=== PATIENT | female | born 1990 | race Caucasian/White ===

== ENCOUNTER 2021-02-02 20:13 | Emergency (ER) | payer OTHER, BC ==
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
[2021-02-02] MEDS ORDERED: Lidocaine 1% with EPINEPHrine 1:100,000 20 ML MDV ONE (20:58)
[2021-02-02] MEDS ORDERED: Lidocaine 1% with EPINEPHrine 1:100,000 20 ML MDV INJECT ONE (20:58)
[2021-02-02 21:38] VITALS: BP 145/83; PULSE 128
[2021-02-02] MEDS ORDERED: Acetaminophen/HYDROcodone 325-5 MG Tab PO ONE (21:53)
[2021-02-02] MEDS ORDERED: Acetaminophen/HYDROcodone 325-5 MG Tab ONE (21:55)
[2021-02-02] MEDS ORDERED: Ondansetron 4 MG Tab.DIS PO ONE ×2 (22:00)
[2021-02-02] MEDS ORDERED: Ondansetron 4 MG Tab.DIS ONE (22:01)
[2021-02-02] MEDS ORDERED: Cephalexin 250 MG Cap ONE (22:20)
[2021-02-02] MEDS ORDERED: Cephalexin 250 MG Cap PO ONE (22:22)
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
== END 2021-02-02 22:37 | disposition home or self-care (01) ==
LOC: KA.ED 20:13 → SUPCPDRO 20:13 → KA.ED 22:37
DX: S42.032A Displaced fracture of lateral end of left clavicle, initial encounter for closed fracture (principal); S01.01XA Laceration without foreign body of scalp, initial encounter; S01.312A Laceration without foreign body of left ear, initial encounter; Z88.5 Allergy status to narcotic agent; Z91.048 Other nonmedicinal substance allergy status; V86.69XA Passenger of other special all-terrain or other off-road motor vehicle injured in nontraffic accident, initial encounter; Y92.410 Unspecified street and highway as the place of occurrence of the external cause
CPT/HCPCS: 12002; 12013; 70450; 73000-LT; 73030-LT; 73610-RT; 99284; 99284-25; A9270-GY

== ENCOUNTER 2023-09-19 01:17 | Emergency (ER) | payer BC ==
[2023-09-19 01:32] VITALS: BP 126/91; PULSE 100
[2023-09-19] MEDS: Acetaminophen/HYDROcodone 325-5 MG Tab PO ONE (01:52)
[2023-09-19] MEDS: Ketorolac 30 MG/ML SDV IM ONE (01:52)
[2023-09-19] MEDS: Amoxicillin 500 MG Cap PO ONE (01:52)
== END 2023-09-19 02:15 | disposition home or self-care (01) ==
LOC: KA.ED 01:17
DX: K08.89 Other specified disorders of teeth and supporting structures (principal); K08.409 Partial loss of teeth, unspecified cause, unspecified class; Z91.048 Other nonmedicinal substance allergy status; Z88.6 Allergy status to analgesic agent; Z79.899 Other long term (current) drug therapy; Z86.19 Personal history of other infectious and parasitic diseases
CPT/HCPCS: 96372; 99282; 99283; A9270-GY; J1885

== ENCOUNTER 2024-08-09 11:06 | Emergency (ER) | payer BC ==
[2024-08-09] MEDS: Lidocaine 1% 5 ML VIAL INJECT ONE (11:13)
[2024-08-09 12:44] VITALS: BP 140/87; PULSE 86
[2024-08-09] MEDS: Lidocaine 1% 5 ML VIAL ONE (12:52)
[2024-08-09] MEDS: Bacitracin/Neomycin/Polymyxin B Oint 0.9 GM U/D Packet ONE (12:52)
== END 2024-08-09 12:15 | disposition home or self-care (01) ==
LOC: KA.ED 11:06
DX: S61.210A Laceration without foreign body of right index finger without damage to nail, initial encounter (principal); F17.210 Nicotine dependence, cigarettes, uncomplicated; E66.9 Obesity, unspecified; Z79.899 Other long term (current) drug therapy; Z91.048 Other nonmedicinal substance allergy status; Z88.5 Allergy status to narcotic agent; Z86.16 Personal history of COVID-19; W26.0XXA Contact with knife, initial encounter
CPT/HCPCS: 12001; 99282; 99283; J2003